=== PATIENT | female | born 1965 | race Caucasian/White ===

== ENCOUNTER → 2016-12-28 | Outpatient (CLI) | payer MEDICARE, OTHER ==
[~2016-12-28] MED LIST: ALBUTEROL17 GM INH; ALPRAZOLAM PO; ALPRAZOLAM0.5 M1 PO; BENTYL20 MG PO; CALCIUM 600 + D1 TA1 PO; CYMBALTA30 MG PO; DALMANE15 MG PO; DALMANE30 MG PO; DICLOFENAC PO; DOXYCYCLINE HY100 M3 PO; FAMOTIDINE PO; FLEXERIL10 MG PO; FLUVOXAMINE MA100 M1 PO; GABAPENTIN300 MG PO; HYDROCODON-ACE1 EAC4 PO; HYDROCODONE-A1 UDTA2 PO; KETOPROFEN PO; LIDODERM30 EA TOP; LORTAB 10-5001 EACH PO; LORTAB 10/500 T1 TAB PO; LUVOX PO; LUVOX50 MG PO; MEDROL DOSEPAK4 MG PO; MEDROL4 MG/DOSE- PO; MENEST0.625 MG PO; MOVANTIK25 MG PO; NAPROSYN500 MG PO; NEURONTIN300 MG PO; OLANZAPINE10 MG PO; ORUDIS75 M1 PO; PERCOCET 10/3251 TAB PO; PRILOSEC PO; PROTONIX PO; SIMVASTATIN20 MG PO; SIMVASTATIN5 MG; TESSALON200 MG PO; TYLENOL #3 PO; UROXATRAL10 MG PO; VITAMIN B-1000 MCG/1 IJ; VITAMIN D50000 UNIT PO; XANAX0.5 M1 PO; XANAX0.5 MG PO; ZOFRAN ODT4 MG PO; ZYPREXA PO; ZYPREXA10 MG PO; ZYRTEC1 MG/1 ML PO
--- NOTE | ~2016-12-28 | CR63 ---
[facility] RADIOLOGY TEXT RESULTS PATIENT: BETTYE CABRERA LOCATION: [facility] : 65 UNIT #: [id number] AGE: [address]: Lynn Milton APRN SEX: F ORDER DR: [id number] [facility] [address] [place], [place] [address] [id number] O MR#: [id number] Acc #: [id number] NAME: BETTYE CABRERA : 1965 SEX: F STUDY DATE/TIME: 12/28/2016 12:14 UNIT: [facility] ROOM: STUDY DESCRIPTION: CR Chest 2 View Attending Physician: Lynn Milton A.P.R.N. Referring Physician: Lynn Milton A.P.R.N. Ordering Physician: Lynn Milton A.P.R.N. Primary Care Physician: Cory Covington M.D. MEDICAL IMAGING REPORT This report is preliminary unless electronic signature is present EXAM Chest, PA and lateral, 12/28/2016. HISTORY Shortness of breath and wheezing for 2 weeks, COPD exacerbation. Benign essential hypertension, coronary artery disease and myocardial infarction 1 year ago. FINDINGS The heart is normal in size. The lungs are clear. There are no pleural effusions. There are postsurgical changes of prior fusion in the visualized lower cervical spine. IMPRESSION No active pulmonary disease. Dictated by... Indio Newton M.D. THIS IS AN ELECTRONICALLY VERIFIED REPORT Indio Newton M.D. at 12/29/2016 8:09 AM NATALI/noé TD: 12/28/2016 17:13 JOB #: [id number] MEDICAL IMAGING REPORT Page 1 of 1 COPY
== END | disposition home or self-care (01) ==
LOC: CRAD 12:00
DX: J44.9 Chronic obstructive pulmonary disease, unspecified (principal); R06.02 Shortness of breath; R06.2 Wheezing
CPT/HCPCS: 71020